=== PATIENT | male | born 1945 | race Caucasian/White ===

== ENCOUNTER 2018-06-19 10:58 | Inpatient (IN) | payer MEDICARE, OTHER ==
[~2018-06-19] VITALS: Ht 182.9 cm; Wt 110.1 kg
[2018-06-19] MEDS ORDERED: BACITRACIN ZINC OINT 500U/GM, 0.9 GM ONE ×2 (11:18→11:40)
[2018-06-19 11:43] LABS: BASOPHILS # (AUTO) 0.01 x10^3/uL (0-0.1); BASOPHILS % (AUTO) 0 % (0-1); EOSINOPHILS # (AUTO) 0.01 x10^3/uL (0-0.4); EOSINOPHILS % (AUTO) 0 % (1-7); LYMPHOCYTES # (AUTO) 1.22 x10^3/uL (1-3.4); LYMPHOCYTES % (AUTO) 8 % (22-44); MD NO; MEAN CORPUSCULAR HEMOGLOBIN 32.4 pg (27.5-34.5); MEAN CORPUSCULAR HGB CONC 33.1 g/dL (33.2-36.2); MEAN CORPUSCULAR VOLUME 98.1 fL (81-97); MEAN PLATELET VOLUME 8.2 fL (7.4-10.4); MONOCYTES # (AUTO) 1.26 x10^3/uL (0.2-0.8); MONOCYTES % (AUTO) 8 % (2-9); NEUTROPHILS % (AUTO) 85 % (42-75); PLATELET COUNT 207 x10^3/uL (130-400); RED BLOOD COUNT 3.67 x10^6/uL (4.38-5.82); RED CELL DISTRIBUTION WIDTH 15.3 % (9.4-14.8)
[2018-06-19 11:56] LABS: TROPONIN I 0.031 ng/mL (0.000-0.045)
[2018-06-19 11:58] LABS: ALANINE AMINOTRANSFERASE 33 U/L (12-78); ALBUMIN 3.5 g/dL (3.4-5.0); ANION GAP 7 mmol/L (5-15); CALCIUM 8.8 mg/dL (8.5-10.1); CHLORIDE 101 mmol/L (98-107); CREATININE 1.07 mg/dL (0.7-1.3)
[2018-06-19 12:02] LABS: ALKALINE PHOSPHATASE 145 U/L (45-117); BILIRUBIN,TOTAL 1.1 mg/dL (0.2-1.0); TOTAL PROTEIN 8.5 g/dL (6.4-8.2)
[2018-06-19] MEDS ORDERED: PLEASE ENTER ALLERGIES MC SCH (12:30)
[2018-06-19] MEDS ORDERED: FUROSEMIDE 40 MG/4 ML IV ONE (12:30)
[2018-06-19] MEDS ORDERED: BISACODYL 10 MG SUPP PR PRN (14:00)
[2018-06-19] MEDS ORDERED: ONDANSETRON 2MG/ML, 2ML IVPush PRN (14:00)
[2018-06-19] MEDS ORDERED: hydrALAzine 20 MG/ML, 1ML IVPush PRN (14:00)
[2018-06-19] MEDS ORDERED: POLYETHYLENE GLYCOL 17 GM PACKET PO PRN (14:00)
[2018-06-19] MEDS ORDERED: GLUCAGON 1 MG IM PRN (14:30)
[2018-06-19] MEDS ORDERED: DEXTROSE 4 GM TAB.CHEW PO PRN (14:30)
[2018-06-19] MEDS ORDERED: DEXTROSE 50%, 50ML SYRINGE IVPush PRN (14:30)
[2018-06-19] MEDS: ACETAMINOPHEN 325 MG TABLET PO PRN (14:44)
[2018-06-19 15:21] LABS: HCT (SEDRATE) 36.1 % (39.2-51.8)
[2018-06-19 15:27] LABS: MICROSCOPIC AUTO
[2018-06-19 15:38] LABS: CULTURE INDICATED? YES
[2018-06-19 15:41] LABS: THYROID STIMULATING HORMONE 4.74 mIU/L (0.358-3.740)
[2018-06-19] MEDS: INSULIN LISPRO 100 UNITS/ML, PEN SQ-INSULIN SCH ×2 (16:00→20:58)
[2018-06-19] MEDS: ENOXAPARIN 40 MG/0.4 ML SQ SCH (16:03)
[2018-06-19] MEDS: FUROSEMIDE 40 MG/4 ML IV SCH (16:59)
[2018-06-19 17:09] VITALS: BP 112/77
[2018-06-19 17:45] LABS: TROPONIN I 0.047 ng/mL (0.000-0.045)
[2018-06-19] MEDS ORDERED: MEXI150C PO (18:00)
[2018-06-19] MEDS ORDERED: LEVO25TA2 PO (18:00)
[2018-06-19] MEDS ORDERED: FURO-93 PO (18:00)
[2018-06-19 19:31] VITALS: BP 118/82
[2018-06-19] MEDS: SODIUM CHLORIDE FLUSH 10ML SYR IVF SCH ×2 (20:55)
[2018-06-19] MEDS: POTASSIUM CHLORIDE 20 MEQ TAB.ER.PRT PO SCH (20:55)
[2018-06-19 23:37] LABS: TROPONIN I 0.034 ng/mL (0.000-0.045)
[2018-06-20] MEDS: ACETAMINOPHEN 325 MG TABLET PO PRN ×4 (00:22→20:12)
[2018-06-20 02:00] VITALS: BP 90/58
[2018-06-20 05:36] LABS: ANION GAP 9 mmol/L (5-15); CALCIUM 8.4 mg/dL (8.5-10.1); CHLORIDE 105 mmol/L (98-107); CREATININE 1.04 mg/dL (0.7-1.3)
[2018-06-20 06:01] LABS: BASOPHILS # (AUTO) 0.02 x10^3/uL (0-0.1); BASOPHILS % (AUTO) 0 % (0-1); EOSINOPHILS # (AUTO) 0.16 x10^3/uL (0-0.4); EOSINOPHILS % (AUTO) 2 % (1-7); LYMPHOCYTES # (AUTO) 1.18 x10^3/uL (1-3.4); LYMPHOCYTES % (AUTO) 12 % (22-44); MD NO; MEAN CORPUSCULAR HEMOGLOBIN 33.1 pg (27.5-34.5); MEAN CORPUSCULAR HGB CONC 34.1 g/dL (33.2-36.2); MEAN CORPUSCULAR VOLUME 97.2 fL (81-97); MEAN PLATELET VOLUME 8.6 fL (7.4-10.4); MONOCYTES # (AUTO) 0.77 x10^3/uL (0.2-0.8); MONOCYTES % (AUTO) 8 % (2-9); NEUTROPHILS # (AUTO) 7.63 x10^3/uL (1.8-6.8); NEUTROPHILS % (AUTO) 78 % (42-75); PLATELET COUNT 156 x10^3/uL (130-400); RED BLOOD COUNT 3.14 x10^6/uL (4.38-5.82); RED CELL DISTRIBUTION WIDTH 15.4 % (9.4-14.8)
[2018-06-20] MEDS: INSULIN LISPRO 100 UNITS/ML, PEN SQ-INSULIN SCH ×4 (07:22→20:22)
[2018-06-20] MEDS: SODIUM CHLORIDE FLUSH 10ML SYR IVF SCH ×4 (07:52→20:12)
[2018-06-20] MEDS ORDERED: SODIUM CHLORIDE 0.9% 1,000 ML IV SCH (08:00)
[2018-06-20] MEDS: FUROSEMIDE 40 MG/4 ML IV SCH ×2 (08:23→19:24)
[2018-06-20] MEDS: POTASSIUM CHLORIDE 20 MEQ TAB.ER.PRT PO SCH ×2 (08:24→19:24)
[2018-06-20 08:26] VITALS: BP 101/66
[2018-06-20 14:24] VITALS: BP 104/64
[2018-06-20 18:49] VITALS: BP 106/68
[2018-06-20] MEDS: ENOXAPARIN 40 MG/0.4 ML SQ SCH (19:24)
[2018-06-21 00:06] VITALS: BP 103/69
[2018-06-21 06:48] VITALS: BP 121/80
[2018-06-21] MEDS: INSULIN LISPRO 100 UNITS/ML, PEN SQ-INSULIN SCH ×5 (07:53→21:09)
[2018-06-21] MEDS: FUROSEMIDE 40 MG/4 ML IV SCH ×2 (08:25→16:18)
[2018-06-21] MEDS: POTASSIUM CHLORIDE 20 MEQ TAB.ER.PRT PO SCH ×2 (08:25→16:19)
[2018-06-21] MEDS: SODIUM CHLORIDE FLUSH 10ML SYR IVF SCH ×4 (08:26→21:00)
[2018-06-21 13:05] VITALS: BP 119/74
[2018-06-21] MEDS ORDERED: MEXI150C PO (18:34)
[2018-06-21] MEDS ORDERED: POTA10CA PO (18:34)
[2018-06-21] MEDS ORDERED: AMIO100T4 PO (18:34)
[2018-06-21] MEDS ORDERED: LISI-167 PO (18:34)
[2018-06-21] MEDS ORDERED: LEVO112T4 PO (18:34)
[2018-06-21] MEDS ORDERED: METF750T2 PO (18:34)
[2018-06-21] MEDS ORDERED: FURO-93 PO (18:34)
[2018-06-21] MEDS ORDERED: TRAM50TA2 PO (18:34)
[2018-06-21] MEDS ORDERED: APIX5TAB PO (18:34)
[2018-06-21 18:36] VITALS: BP 113/67
[2018-06-21] MEDS: APIXABAN 5 MG TABLET PO SCH (21:07)
[2018-06-21] MEDS: AMIODARONE 200 MG TABLET PO SCH (21:07)
[2018-06-21] MEDS: metFORMIN 500 MG TABLET PO SCH (21:07)
[2018-06-21] MEDS: MEXILETINE 150 MG CAPSULE PO SCH (21:18)
[2018-06-21] MEDS ORDERED: MAGN420T PO (21:22)
[2018-06-22 00:45] VITALS: BP 104/64
[2018-06-22] MEDS: ACETAMINOPHEN 325 MG TABLET PO PRN ×3 (02:53→20:04)
[2018-06-22] MEDS ORDERED: DIPHENHYDRAMINE 25 MG CAPSULE PO ONE (03:30)
[2018-06-22 05:10] LABS: BASOPHILS # (AUTO) 0.04 x10^3/uL (0-0.1); BASOPHILS % (AUTO) 1 % (0-1); EOSINOPHILS # (AUTO) 0.42 x10^3/uL (0-0.4); EOSINOPHILS % (AUTO) 6 % (1-7); LYMPHOCYTES # (AUTO) 1.23 x10^3/uL (1-3.4); LYMPHOCYTES % (AUTO) 16 % (22-44); MD NO; MEAN CORPUSCULAR HEMOGLOBIN 32.2 pg (27.5-34.5); MEAN CORPUSCULAR HGB CONC 32.9 g/dL (33.2-36.2); MEAN CORPUSCULAR VOLUME 97.6 fL (81-97); MEAN PLATELET VOLUME 7.7 fL (7.4-10.4); MONOCYTES # (AUTO) 0.76 x10^3/uL (0.2-0.8); MONOCYTES % (AUTO) 10 % (2-9); NEUTROPHILS # (AUTO) 5.04 x10^3/uL (1.8-6.8); NEUTROPHILS % (AUTO) 67 % (42-75); PLATELET COUNT 198 x10^3/uL (130-400); RED BLOOD COUNT 3.51 x10^6/uL (4.38-5.82)
[2018-06-22 05:16] LABS: ALBUMIN 2.5 g/dL (3.4-5.0); ANION GAP 10 mmol/L (5-15); CALCIUM 8.5 mg/dL (8.5-10.1); CHLORIDE 104 mmol/L (98-107)
[2018-06-22 05:20] LABS: ALANINE AMINOTRANSFERASE 40 U/L (12-78); ALKALINE PHOSPHATASE 119 U/L (45-117); BILIRUBIN,TOTAL 0.5 mg/dL (0.2-1.0); CREATININE 1.24 mg/dL (0.7-1.3); TOTAL PROTEIN 6.9 g/dL (6.4-8.2)
[2018-06-22 06:51] VITALS: BP 107/68
[2018-06-22] MEDS: LEVOTHYROXINE 112 MCG TABLET PO SCH (08:45)
[2018-06-22] MEDS: LISINOPRIL 10 MG TABLET PO SCH (08:45)
[2018-06-22] MEDS: APIXABAN 5 MG TABLET PO SCH ×2 (08:45→18:34)
[2018-06-22] MEDS: AMIODARONE 200 MG TABLET PO SCH ×2 (08:45→20:02)
[2018-06-22] MEDS: MEXILETINE 150 MG CAPSULE PO SCH ×3 (08:45→20:02)
[2018-06-22] MEDS: MAGNESIUM OXIDE 400 MG TABLET PO SCH ×4 (08:45→20:03)
[2018-06-22] MEDS: INSULIN LISPRO 100 UNITS/ML, PEN SQ-INSULIN SCH ×4 (08:48→20:05)
[2018-06-22] MEDS: SODIUM CHLORIDE FLUSH 10ML SYR IVF SCH ×4 (09:00→20:05)
[2018-06-22] MEDS: FUROSEMIDE 40 MG/4 ML IV SCH ×2 (10:58→18:34)
[2018-06-22 14:35] VITALS: BP 108/71
[2018-06-22 18:58] VITALS: BP 109/70
[2018-06-22] MEDS: metFORMIN 500 MG TABLET PO SCH (20:02)
[2018-06-23] VITALS (8 sets, daily range): BP systolic 47–108; BP diastolic 35–71
[2018-06-23] MEDS: ACETAMINOPHEN 325 MG TABLET PO PRN ×2 (03:05→22:13)
[2018-06-23 04:56] LABS: BASOPHILS # (AUTO) 0.07 x10^3/uL (0-0.1); BASOPHILS % (AUTO) 1 % (0-1); EOSINOPHILS # (AUTO) 0.49 x10^3/uL (0-0.4); EOSINOPHILS % (AUTO) 6 % (1-7); LYMPHOCYTES # (AUTO) 1.34 x10^3/uL (1-3.4); LYMPHOCYTES % (AUTO) 16 % (22-44); MD NO; MEAN CORPUSCULAR HEMOGLOBIN 32.1 pg (27.5-34.5); MEAN CORPUSCULAR HGB CONC 33.1 g/dL (33.2-36.2); MEAN CORPUSCULAR VOLUME 96.9 fL (81-97); MEAN PLATELET VOLUME 7.4 fL (7.4-10.4); MONOCYTES # (AUTO) 0.85 x10^3/uL (0.2-0.8); MONOCYTES % (AUTO) 10 % (2-9); NEUTROPHILS # (AUTO) 5.58 x10^3/uL (1.8-6.8); NEUTROPHILS % (AUTO) 67 % (42-75); PLATELET COUNT 218 x10^3/uL (130-400); RED BLOOD COUNT 3.62 x10^6/uL (4.38-5.82); RED CELL DISTRIBUTION WIDTH 15.3 % (9.4-14.8)
[2018-06-23 05:07] LABS: ANION GAP 6 mmol/L (5-15); CALCIUM 8.5 mg/dL (8.5-10.1); CHLORIDE 105 mmol/L (98-107)
[2018-06-23 05:08] LABS: CREATININE 1.18 mg/dL (0.7-1.3)
[2018-06-23] MEDS: LEVOTHYROXINE 112 MCG TABLET PO SCH (05:47)
[2018-06-23] MEDS: APIXABAN 5 MG TABLET PO SCH ×2 (07:45→18:25)
[2018-06-23] MEDS: INSULIN LISPRO 100 UNITS/ML, PEN SQ-INSULIN SCH ×4 (07:45→20:29)
[2018-06-23] MEDS: FUROSEMIDE 40 MG/4 ML IV SCH ×2 (07:46→16:13)
[2018-06-23] MEDS: SODIUM CHLORIDE FLUSH 10ML SYR IVF SCH ×4 (08:48→20:01)
[2018-06-23] MEDS: AMIODARONE 200 MG TABLET PO SCH ×2 (08:49→20:00)
[2018-06-23] MEDS: LISINOPRIL 10 MG TABLET PO SCH (08:49)
[2018-06-23] MEDS: MAGNESIUM OXIDE 400 MG TABLET PO SCH ×2 (08:49→20:01)
[2018-06-23] MEDS: MEXILETINE 150 MG CAPSULE PO SCH ×3 (08:49→20:01)
[2018-06-23] MEDS ORDERED: TAMSULOSIN 0.4 MG CAP.ER.24H PO ONE (17:00)
[2018-06-23] MEDS ORDERED: MAGNESIUM SULFATE PMX 2GM/50ML 50 ML IV ONE (17:00)
[2018-06-23] MEDS: metFORMIN 500 MG TABLET PO SCH (20:01)
[2018-06-23] MEDS ORDERED: SODIUM CHLORIDE 0.9%, 500ML IVBOLUS ONE (23:00)
[2018-06-24] MEDS ORDERED: SODIUM CHLORIDE 0.9%, 500ML IVBOLUS ONE
[2018-06-24 02:03] VITALS: BP 87/53
[2018-06-24] MEDS: ACETAMINOPHEN 325 MG TABLET PO PRN ×2 (03:24→17:06)
[2018-06-24] MEDS: LEVOTHYROXINE 112 MCG TABLET PO SCH (06:01)
[2018-06-24 06:10] LABS: BASOPHILS # (AUTO) 0.04 x10^3/uL (0-0.1); BASOPHILS % (AUTO) 1 % (0-1); EOSINOPHILS # (AUTO) 0.39 x10^3/uL (0-0.4); EOSINOPHILS % (AUTO) 5 % (1-7); LYMPHOCYTES # (AUTO) 1.64 x10^3/uL (1-3.4); LYMPHOCYTES % (AUTO) 22 % (22-44); MD NO; MEAN CORPUSCULAR HEMOGLOBIN 32.6 pg (27.5-34.5); MEAN CORPUSCULAR HGB CONC 33.5 g/dL (33.2-36.2); MEAN CORPUSCULAR VOLUME 97.2 fL (81-97); MEAN PLATELET VOLUME 7.5 fL (7.4-10.4); MONOCYTES # (AUTO) 0.67 x10^3/uL (0.2-0.8); MONOCYTES % (AUTO) 9 % (2-9); NEUTROPHILS # (AUTO) 4.87 x10^3/uL (1.8-6.8); NEUTROPHILS % (AUTO) 64 % (42-75); PLATELET COUNT 201 x10^3/uL (130-400); RED BLOOD COUNT 3.44 x10^6/uL (4.38-5.82); RED CELL DISTRIBUTION WIDTH 14.8 % (9.4-14.8)
[2018-06-24 06:21] LABS: ANION GAP 9 mmol/L (5-15); CALCIUM 8.5 mg/dL (8.5-10.1); CHLORIDE 105 mmol/L (98-107); CREATININE 1.25 mg/dL (0.7-1.3)
[2018-06-24 06:22] LABS: ALANINE AMINOTRANSFERASE 29 U/L (12-78); ALBUMIN 2.6 g/dL (3.4-5.0)
[2018-06-24 06:24] LABS: ALKALINE PHOSPHATASE 110 U/L (45-117); BILIRUBIN,TOTAL 0.6 mg/dL (0.2-1.0); TOTAL PROTEIN 6.7 g/dL (6.4-8.2)
[2018-06-24 07:04] VITALS: BP_SYST 114; BP_SYST 121; BP_DIAS 22; BP_DIAS 73
[2018-06-24] MEDS: SODIUM CHLORIDE FLUSH 10ML SYR IVF SCH ×4 (08:41→20:27)
[2018-06-24] MEDS: INSULIN LISPRO 100 UNITS/ML, PEN SQ-INSULIN SCH ×4 (08:41→20:35)
[2018-06-24] MEDS: APIXABAN 5 MG TABLET PO SCH ×2 (08:41→20:27)
[2018-06-24 08:45] VITALS: BP 96/62
[2018-06-24] MEDS: MEXILETINE 150 MG CAPSULE PO SCH ×3 (09:00→20:27)
[2018-06-24] MEDS: TAMSULOSIN 0.4 MG CAP.ER.24H PO SCH (09:00)
[2018-06-24] MEDS ORDERED: LISINOPRIL 5 MG TABLET PO SCH (09:00)
[2018-06-24] MEDS: AMIODARONE 200 MG TABLET PO SCH ×2 (09:00→20:27)
[2018-06-24] MEDS: FUROSEMIDE 20 MG TABLET PO SCH (09:00)
[2018-06-24] MEDS: MAGNESIUM OXIDE 400 MG TABLET PO SCH ×3 (09:21→20:27)
[2018-06-24 12:14] VITALS: BP 96/61
[2018-06-24 16:33] VITALS: BP 116/75
[2018-06-24 20:24] VITALS: BP 89/58
[2018-06-24] MEDS: metFORMIN 500 MG TABLET PO SCH (20:27)
[2018-06-25 01:47] VITALS: BP 105/66
[2018-06-25] MEDS: ACETAMINOPHEN 325 MG TABLET PO PRN ×2 (01:58→22:12)
[2018-06-25] MEDS: LEVOTHYROXINE 112 MCG TABLET PO SCH (06:01)
[2018-06-25 06:10] LABS: BASOPHILS # (AUTO) 0.05 x10^3/uL (0-0.1); BASOPHILS % (AUTO) 1 % (0-1); EOSINOPHILS # (AUTO) 0.41 x10^3/uL (0-0.4); EOSINOPHILS % (AUTO) 5 % (1-7); LYMPHOCYTES # (AUTO) 1.56 x10^3/uL (1-3.4); LYMPHOCYTES % (AUTO) 20 % (22-44); MD NO; MEAN CORPUSCULAR HEMOGLOBIN 32.4 pg (27.5-34.5); MEAN CORPUSCULAR HGB CONC 33.3 g/dL (33.2-36.2); MEAN CORPUSCULAR VOLUME 97.1 fL (81-97); MEAN PLATELET VOLUME 7.5 fL (7.4-10.4); MONOCYTES % (AUTO) 8 % (2-9); NEUTROPHILS # (AUTO) 5.14 x10^3/uL (1.8-6.8); NEUTROPHILS % (AUTO) 66 % (42-75); PLATELET COUNT 245 x10^3/uL (130-400); RED BLOOD COUNT 3.64 x10^6/uL (4.38-5.82)
[2018-06-25 06:19] LABS: ANION GAP 9 mmol/L (5-15); CALCIUM 8.7 mg/dL (8.5-10.1); CHLORIDE 105 mmol/L (98-107); CREATININE 1.19 mg/dL (0.7-1.3)
[2018-06-25] MEDS: INSULIN LISPRO 100 UNITS/ML, PEN SQ-INSULIN SCH ×4 (07:00→20:52)
[2018-06-25 07:05] VITALS: BP 102/68
[2018-06-25] MEDS: LISINOPRIL 5 MG TABLET PO SCH (08:36)
[2018-06-25] MEDS: MAGNESIUM OXIDE 400 MG TABLET PO SCH ×3 (08:36→20:48)
[2018-06-25] MEDS: APIXABAN 5 MG TABLET PO SCH ×2 (08:36→18:31)
[2018-06-25] MEDS: AMIODARONE 200 MG TABLET PO SCH ×3 (08:36→20:56)
[2018-06-25] MEDS: FUROSEMIDE 20 MG TABLET PO SCH (08:37)
[2018-06-25] MEDS: MEXILETINE 150 MG CAPSULE PO SCH ×4 (08:37→20:56)
[2018-06-25] MEDS: TAMSULOSIN 0.4 MG CAP.ER.24H PO SCH (08:37)
[2018-06-25] MEDS: SODIUM CHLORIDE FLUSH 10ML SYR IVF SCH ×4 (08:38→20:48)
[2018-06-25 08:41] VITALS: BP 110/86
[2018-06-25] MEDS: DOCUSATE 100 MG CAPSULE PO PRN (13:30)
[2018-06-25 13:38] VITALS: BP 116/76
[2018-06-25] MEDS ORDERED: LISI5TAB7 PO (13:50)
[2018-06-25 19:57] VITALS: BP 96/70
[2018-06-25] MEDS: metFORMIN 500 MG TABLET PO SCH (20:49)
[2018-06-26 01:50] VITALS: BP 100/60
[2018-06-26] MEDS: LEVOTHYROXINE 112 MCG TABLET PO SCH (05:20)
[2018-06-26 06:04] VITALS: BP 99/60
[2018-06-26] MEDS: INSULIN LISPRO 100 UNITS/ML, PEN SQ-INSULIN SCH ×2 (08:28→11:49)
[2018-06-26] MEDS: TAMSULOSIN 0.4 MG CAP.ER.24H PO SCH (08:28)
[2018-06-26] MEDS: APIXABAN 5 MG TABLET PO SCH (08:28)
[2018-06-26] MEDS: MAGNESIUM OXIDE 400 MG TABLET PO SCH (08:29)
[2018-06-26] MEDS: FUROSEMIDE 20 MG TABLET PO SCH (08:30)
[2018-06-26] MEDS: MEXILETINE 150 MG CAPSULE PO SCH (08:31)
[2018-06-26] MEDS: AMIODARONE 200 MG TABLET PO SCH (08:31)
[2018-06-26] MEDS: LISINOPRIL 5 MG TABLET PO SCH (08:31)
[2018-06-26] MEDS: SODIUM CHLORIDE FLUSH 10ML SYR IVF SCH ×2 (08:32)
[2018-06-26] MEDS: DOCUSATE 100 MG CAPSULE PO PRN (11:49)
[2018-06-26 13:03] VITALS: BP 130/84
[2018-06-26 13:52] VITALS: BP 96/65
== END 2018-06-26 15:45 | disposition home health service (06) | DRG 73 ==
LOC: ED 12:33 → EDIP 12:53 → 5SO 14:17 → 3NE 06-23 13:15
PROVIDERS: ADMIT Family Medicine; ATTEND Family Medicine
DX: G90.8 Other disorders of autonomic nervous system (principal); I50.33 Acute on chronic diastolic (congestive) heart failure; I42.9 Cardiomyopathy, unspecified; E87.1 Hypo-osmolality and hyponatremia; Z79.01 Long term (current) use of anticoagulants; D64.9 Anemia, unspecified; E11.51 Type 2 diabetes mellitus with diabetic peripheral angiopathy without gangrene; Z86.718 Personal history of other venous thrombosis and embolism; Z87.891 Personal history of nicotine dependence; I65.23 Occlusion and stenosis of bilateral carotid arteries; E03.9 Hypothyroidism, unspecified; D72.829 Elevated white blood cell count, unspecified; E11.65 Type 2 diabetes mellitus with hyperglycemia; E78.5 Hyperlipidemia, unspecified; I11.0 Hypertensive heart disease with heart failure; Z88.0 Allergy status to penicillin; Z88.8 Allergy status to other drugs, medicaments and biological substances; I25.10 Atherosclerotic heart disease of native coronary artery without angina pectoris; I25.2 Old myocardial infarction; I48.91 Unspecified atrial fibrillation; I87.8 Other specified disorders of veins; M17.10 Unilateral primary osteoarthritis, unspecified knee; M85.80 Other specified disorders of bone density and structure, unspecified site; Z66 Do not resuscitate; Z74.01 Bed confinement status; Z79.84 Long term (current) use of oral hypoglycemic drugs; Z95.810 Presence of automatic (implantable) cardiac defibrillator; Z79.899 Other long term (current) drug therapy
CPT/HCPCS: 36415; 70450; 71045; 80048; 80053; 81001; 82607; 82962; 83605; 83735; 83880; 84100; 84443; 84484; 85025; 85651; 87040; 87077; 87086; 87186; 93005; 93306; 93880; 93922; 93970; 96372; 96374; 96376; 99285; G0378; J1650; J1940; J1815; J7040; Q0163